=== PATIENT | male | born 1945 | race African-American/Black ===

== ENCOUNTER 2019-04-15 14:05 | Observation (INO) | payer MEDICARE, MEDICAID ==
[2019-04-15 14:40] LABS: #Eosinphils 0.2 thou/uL (0.0-0.7); #Lymphocytes 1.8 thou/uL (1.20-3.40); #Monocytes 0.4 thou/uL (0.11-0.59); #Neutrophils 2.3 thou/uL (1.40-6.50); %Basophils 0.3 % (0.0-1.0); %Eosinophils 3.6 % (0.0-10.0); %Lymphocytes 38.7 % (21.0-51.0); %Monocytes 8.2 % (0.0-10.0); %Neutrophils 49.2 % (42.0-75.0); Hemoglobin 9.4 g/dL (14.0-18.0); Mean Corpuscular HGB CONC 35.4 g/dL (32.0-36.0); Mean Corpuscular Hemoglobin 32.4 pg (27.0-31.0); Mean Corpuscular Volume 91.7 fL (78.0-98.0); Mean Platelet Volume 8.2 fL (7.4-10.4); Platelet Count 181 thou/uL (130-400); RBC Distribution Width 12.7 % (11.5-14.5); Red Blood Cell (RBC) Count 2.89 mill/uL (4.70-6.10); White Blood Cell (WBC) Count 4.8 thou/uL (4.8-10.8)
--- NOTE | 2019-04-15 14:45 | RAD ---
EXAM: Single view of the chest HISTORY: Low potassium and dyspnea COMPARISON: None FINDINGS: Single view of the chest shows a normal sized cardiomediastinal silhouette. There is no sage dence of consolidation, mass, or pleural effusion. The bones are unremarkable. IMPRESSION: No evidence of acute cardiopulmonary disease
[2019-04-15 15:02] LABS: ALT (SGPT) 8 U/L (8-55); AST (SGOT) 16 U/L (5-34); Albumin 2.3 g/dL (3.4-4.8); Alkaline Phosphatase 64 U/L (40-150); Anion Gap 12 mmol/L (10-20); BUN (Urea Nitrogen) 15 mg/dL (8.4-25.7); Bilirubin, Total 0.7 mg/dL (0.2-1.2); CK (CPK) 43 U/L (30-200); Calc. Creatinine Clearance 0 mL/min (70-130); Carbon Dioxide 28 mmol/L (23-31); Chloride 106 mmol/L (98-107); Estimated GFR-MDRD 44; Globulin 2.3 g/dL (2.4-3.5); Glucose 174 mg/dL (83-110); Protein, Total 4.6 g/dL (5.8-8.1); Sodium 143 mmol/L (136-145)
[2019-04-15 15:07] LABS: Potassium 2.9 mmol/L (3.5-5.1)
[2019-04-15] MEDS ORDERED: Potassium Chloride 20 MEQ TAB ONE (15:38)
[2019-04-15 18:09] VITALS: BMI 22.1
[2019-04-15] MEDS ORDERED: hydrALAZINE 20 MG/ML VIAL SLOW IVP PRN (22:18)
[2019-04-15] MEDS ORDERED: Potassium Chloride 20 MEQ TAB PO SCH (22:30)
[2019-04-15 23:15] LABS: Magnesium 1.9 mg/dL (1.6-2.6); Potassium 3.4 mmol/L (3.5-5.1)
--- NOTE | 2019-04-16 03:09 | HP ---
PRIMARY CARE PHYSICIAN: Ramakrishna Gramajo MD CHIEF COMPLAINT: Abnormal labs. HISTORY OF PRESENT ILLNESS: Mr. Cronin is a 73-year-old man with past medical history of hypertension, chronic kidney disease stage 3, diabetes mellitus, previous history of CVA x2, and prostate cancer, who was transferred to [facility] after seeing Dr. Oglesby in the office and had labs drawn for routine appointment, which found a low potassium of 2.9. The patient reports feeling generalized weakness and some mild nausea. Otherwise, he is asymptomatic. He had denied any fever, chills, any headache, blurred vision other than his baseline chest pain, palpitations, shortness of breath, abdominal pain, change in stool or any edema. Upon arriving to the ED, he was given 40 mEq of potassium chloride by mouth and had been placed on telemetry for further monitoring. His EKG showed mild prolonged QT, otherwise unremarkable. His repeat labs showed a potassium level of 3.4, magnesium 1.9. Troponin was normal at 0.022. The patient denies any other symptoms at this time. REVIEW OF SYSTEMS: All other systems reviewed and found to be negative unless mentioned in the HPI. PAST MEDICAL HISTORY: Hypertension, diabetes mellitus type 2, CVA x2, chronic kidney disease stage 3, and history of prostate cancer. PAST SURGICAL HISTORY: None. SOCIAL HISTORY: The patient denies alcohol, tobacco, or illicit drug use. He states he lives at home with his son. PSYCHIATRIC HISTORY: None. KNOWN ALLERGIES: No known drug allergies. CURRENT HOME MEDICATIONS: 1. Atorvastatin 20 mg oral daily. 2. Clopidogrel 75 mg oral daily. 3. Ferrous sulfate 325 mg oral twice daily. 4. Glipizide 5 mg p.o. daily. 5. Hydralazine 25 mg p.o. t.i.d. 6. Lisinopril 20 mg p.o. daily. 7. Zofran 4 mg p.o. q.4 hours p.r.n. nausea. 8. OxyContin 20 mg p.o. q.12 hours. 9. Potassium chloride 20 mEq p.o. b.i.d. 10. Prednisone 10 mg p.o. daily. 11. Tamsulosin 0.4 mg p.o. daily. 12. Abiraterone acetate 1000 mg p.o. daily. PHYSICAL EXAMINATION: VITAL SIGNS: BP 135/83, pulse 82, respirations 22, temperature 98.2, and O2 saturation 100% on room air. GENERAL: The patient is awake, alert, and oriented x3. He is currently lying comfortably in bed and in no acute distress. HEENT: Atraumatic, normocephalic. Edentulous noted. He is visually impaired, which is his baseline. Moist mucous membranes noted. NECK: Soft, supple. Trachea midline. CARDIOVASCULAR: Positive S1 and S2. Regular rate and rhythm. No murmur auscultated. RESPIRATORY: Clear to auscultation bilaterally. No wheezes, rales, or rhonchi. ABDOMEN: Soft, nontender. Bowel sounds present. MUSCULOSKELETAL: Strength at baseline. Moves all extremities equal. No edema noted. NEUROLOGIC: Cranial nerves 2 through 12 grossly intact. No focal deficits noted. Speech intact and normal. Gait not assessed. SKIN: Warm, dry, and intact. No rashes. No ulceration noted. PSYCHIATRIC: Good mood and affect. LABORATORY DATA: WBC 4.8, RBC 2.89, hemoglobin 9.4, platelets 181. Sodium 143, potassium 2.9 which improved to 3.4, anion gap 12, BUN 15, creatinine 1.55, estimated GFR 44, glucose 174, magnesium 1.9, troponin 0.022. DIAGNOSTIC IMAGING: Portable chest x-ray showed no evidence of acute cardiopulmonary disease. ASSESSMENT AND PLAN: 1. Acute on chronic hypokalemia: The patient's potassium on arrival was 2.9, which had improved to 3.4 after getting oral 40 mEq potassium chloride. He will be continued on 40 mEq b.i.d., which is an increase from his home dose of 20 mEq twice daily. BMP will be rechecked in the morning. Magnesium level was found to be normal at 1.9. 2. History of hypertension. Blood pressure and other vital signs currently stable at this time. He will be resumed on home medications. 3. Diabetes mellitus. The patient will be resumed on home regimen along with insulin sliding scale and frequent Accu-Cheks. 4. History of chronic kidney disease stage 3, which appears to be at his baseline. Repeat BMP in the morning. 5. History of cerebrovascular accident x2, currently stable. 6. History of prostate cancer. 7. Deep venous thrombosis and gastrointestinal prophylaxis. 8. Code status is full code. 9. Surrogate decision maker is his son, Tashi. DISPOSITION: Pending further workup and clinical findings. The patient will likely be discharged home with his son in the next 1 to 2 days. Job ID: [id number]
[2019-04-16 06:01] LABS: #Eosinphils 0.2 thou/uL (0.0-0.7); #Lymphocytes 1.9 thou/uL (1.20-3.40); #Monocytes 0.7 thou/uL (0.11-0.59); %Basophils 0.2 % (0.0-1.0); %Eosinophils 2.5 % (0.0-10.0); %Lymphocytes 28.6 % (21.0-51.0); %Monocytes 9.7 % (0.0-10.0); Hemoglobin 8.8 g/dL (14.0-18.0); Mean Corpuscular HGB CONC 34.5 g/dL (32.0-36.0); Mean Corpuscular Hemoglobin 31.6 pg (27.0-31.0); Mean Corpuscular Volume 91.6 fL (78.0-98.0); Mean Platelet Volume 7.9 fL (7.4-10.4); Platelet Count 168 thou/uL (130-400); RBC Distribution Width 12.7 % (11.5-14.5); Red Blood Cell (RBC) Count 2.78 mill/uL (4.70-6.10); White Blood Cell (WBC) Count 6.7 thou/uL (4.8-10.8)
[2019-04-16 06:22] LABS: Anion Gap 8 mmol/L (10-20); BUN (Urea Nitrogen) 16 mg/dL (8.4-25.7); Calc. Creatinine Clearance 37 mL/min (70-130); Calcium 8.2 mg/dL (7.8-10.44); Carbon Dioxide 31 mmol/L (23-31); Chloride 109 mmol/L (98-107); Estimated GFR-MDRD 56; Glucose 132 mg/dL (83-110); Magnesium 1.9 mg/dL (1.6-2.6); Potassium 3.8 mmol/L (3.5-5.1); Sodium 144 mmol/L (136-145)
[2019-04-16] MEDS ORDERED: Clopidogrel Bisulfate 75 MG TAB PO SCH (09:00)
[2019-04-16] MEDS ORDERED: Atorvastatin Calcium 20 MG TAB PO SCH (09:00)
[2019-04-16] MEDS ORDERED: Lisinopril 20 MG TAB PO SCH (09:00)
[2019-04-16] MEDS ORDERED: Ferrous Sulfate 325 MG TAB PO SCH (09:00)
[2019-04-16] MEDS ORDERED: oxyCODONE ER 20 MG TAB PO SCH (09:00)
[2019-04-16] MEDS ORDERED: Tamsulosin HCl 0.4 MG CAP PO SCH (09:00)
[2019-04-16] MEDS ORDERED: Abiraterone Acetate [Zytiga] 1,000 MG PO SCH (09:00)
[2019-04-16] MEDS ORDERED: predniSONE 5 MG TAB PO SCH (09:00)
[2019-04-16] MEDS ORDERED: glipiZIDE 5 MG TAB PO SCH (09:00)
[2019-04-16] MEDS: hydrALAZINE 25 MG TAB PO SCH ×2 (09:59→14:43)
[2019-04-16] MEDS: Potassium Chloride 20 MEQ TAB PO SCH ×2 (10:00→17:07)
[2019-04-16 17:14] VITALS: TEMP 98.8
[2019-04-16 17:59] VITALS: BP 158/77
--- NOTE | 2019-04-16 23:30 | DIS ---
DATE OF ADMISSION: 04/15/2019 DATE OF DISCHARGE: 04/16/2019 DISCHARGE DIAGNOSES: 1. Acute hypokalemia, resolving. 2. Acute kidney injury on chronic kidney disease, improved. 3. Anemia secondary to chronic kidney disease. 4. Diabetes mellitus type 2, stable. CONSULTATIONS: None. PERTINENT LABORATORY AND X-RAY FINDINGS: Potassium ranged between 2.9 to 3.8. Creatinine ranged between 1.50 to 1.55. Estimated GFR ranged between 44 to 56. Magnesium level 1.9. LFTs within normal limits. CBC showed a hemoglobin ranged between 8.8 to 9.4, MCV 92. Portable chest x-ray dated 04/15/2019, showed no acute cardiopulmonary process. HOSPITAL COURSE: The patient was observed on the telemetry unit after initially presenting with hypokalemia noted on routine laboratory analysis. The patient with mild generalized weakness in the context of prior CVA x2, requiring wheelchair for mobilization. The patient received potassium supplementation during the hospital course with normalization of potassium levels prior to discharge. The patient was also noted with mild acute kidney injury in the context of chronic kidney disease stage 3, improving with general supportive management. Telemetry monitoring showed sinus mechanism without acute arrhythmia or dysrhythmia. The patient continued regular oral intake with stable vital signs for the remainder of the hospital course. I have examined the patient at the time of discharge and discussed followup instructions. The patient verbalized understanding and in agreement, ready for discharge on 04/16/2019. DISCHARGE MEDICATIONS: 1. Zytiga 1000 mg p.o. daily. 2. Lipitor 20 mg p.o. daily. 3. Plavix 75 mg p.o. daily. 4. Ferrous sulfate 325 mg p.o. b.i.d. 5. Glipizide 5 mg p.o. daily. 6. Apresoline 25 mg p.o. t.i.d. 7. Lisinopril 20 mg p.o. daily. 8. Zofran 4 mg p.o. q.6 hours p.r.n. 9. OxyContin 20 mg p.o. b.i.d. 10. Prednisone 10 mg p.o. daily. 11. Tamsulosin 0.4 mg p.o. daily. 12. K-Dur 20 mEq p.o. t.i.d. x3 days, followed by 20 mEq p.o. b.i.d. FOLLOWUP: The patient may follow up with his primary care provider, Dr. Ramakrishna Gramajo within 7 days of discharge. CONDITION ON DISCHARGE: Stable. ACTIVITY: Ad-viviana. DIET: ADA. SPECIAL INSTRUCTIONS: Repeat basic metabolic profile at first followup visit with primary care provider. CODE STATUS: Full. DISPOSITION: Home on 04/16/2019. Job ID: [id number]
--- NOTE | 2019-04-22 12:46 | EKG ---
Test Reason : LOW K Blood Pressure : / mmHG Vent. Rate : 071 BPM Atrial Rate : 071 BPM P-R Int : 134 ms QRS Dur : 070 ms QT Int : 466 ms P-R-T Axes : 024 014 051 degrees QTc Int : 506 ms Normal sinus rhythm Septal infarct , age undetermined Prolonged QT Abnormal ECG Confirmed by RICHARD COLES, ELLIS ([id number]), acquisition editor ALEXI YANCEY ([id number]) on 04/22/2019 12:45:55 PM Referred By: Confirmed By:ELLIS RAMOS MD
== END 2019-04-16 17:40 | disposition home or self-care (01) ==
LOC: ERS 14:05 → 2SW 16:19 → 2NO 19:40
PROVIDERS: ADMIT Internal Medicine; ATTEND Internal Medicine
DX: E87.6 Hypokalemia (principal); I12.9 Hypertensive chronic kidney disease with stage 1 through stage 4 chronic kidney disease, or unspecified chronic kidney disease; E11.22 Type 2 diabetes mellitus with diabetic chronic kidney disease; N18.3 Chronic kidney disease, stage 3 (moderate); N17.9 Acute kidney failure, unspecified; D63.1 Anemia in chronic kidney disease; Z86.73 Personal history of transient ischemic attack (TIA), and cerebral infarction without residual deficits; Z85.46 Personal history of malignant neoplasm of prostate; Z99.3 Dependence on wheelchair; Z79.84 Long term (current) use of oral hypoglycemic drugs; Z79.02 Long term (current) use of antithrombotics/antiplatelets; Z79.899 Other long term (current) drug therapy
CPT/HCPCS: 71045; 80048; 80053; 82550; 83735 ×2; 84132; 84484; 85025 ×2; 93005; 96374; 99285; G0378 ×3; 36415; J0360; J7512